=== PATIENT | female | born 2000 | race Hispanic/Latino ===

== ENCOUNTER 2020-10-14 12:18 | Day surgery (SDC) | payer OTHER ==
[2020-10-14] MEDS ORDERED: hydrALAZINE 20 MG/ML VIAL SLOW IVP PRN (12:35)
[2020-10-14 12:59] VITALS: BMI 20.9
[2020-10-14 13:11] LABS: Bilirubin Neg (Negative); Blood, Urine Negative (Negative); Clarity Clear (Clear); Glucose, Urine (Dipstick) Normal (Negative); Ketone, Urine Negative (Negative); Leukocyte Negative (Negative); Nitrite Negative (Negative); Protein, Urine (Dipstick) Negative (Neg-Trace); Urobilinogen Normal mg/dL (Less than 2)
[2020-10-14 13:12] LABS: Urine Culture Reflex No No
[2020-10-14 13:25] LABS: Bacteria/HPF Rare-Few HPF (None Seen); RBC/HPF 0-3 HPF (0-3); Squamous Epithelial 0-3 HPF (0-3); WBC/HPF 0-3 HPF (0-3)
== END 2020-10-14 14:11 | disposition home or self-care (01) ==
LOC: CSHLD/OP 12:18
PROVIDERS: ATTEND Obstetrics & Gynecology
DX: O99.891 Other specified diseases and conditions complicating pregnancy (principal); R10.30 Lower abdominal pain, unspecified; R30.0 Dysuria; Z3A.22 22 weeks gestation of pregnancy; Z87.440 Personal history of urinary (tract) infections; Z88.0 Allergy status to penicillin
CPT/HCPCS: 51701; 81001; 99282

== ENCOUNTER 2021-02-09 13:30 | Outpatient (CLI) | payer OTHER ==
[2021-02-10 13:56] LABS: SARS-CoV-2 PCR by NAA Not Detected (NotDetected)
== END 2021-02-09 13:31 | disposition home or self-care (01) ==
LOC: CSHLAB 13:30
PROVIDERS: ATTEND Obstetrics & Gynecology
DX: Z20.822 Contact with and (suspected) exposure to COVID-19 (principal)
CPT/HCPCS: U0003; U0005

== ENCOUNTER 2021-02-13 19:05 | Inpatient (IN) | payer OTHER ==
[~2021-02-13 19:05] MED LIST: Bupivacaine 0.25% HCL 30 ML VIAL ONE
[2021-02-13] MEDS ORDERED: Ondansetron PF 4 MG/2 ML Vial IVP PRN (20:37)
[2021-02-13] MEDS ORDERED: Misoprostol 200 MCG TAB PR PRN (20:37)
[2021-02-13] MEDS ORDERED: Butorphanol Tartrate 1 MG/ML VIAL SLOW IVP PRN (20:37)
[2021-02-13] MEDS ORDERED: Lidocaine 1% (PF) 30 ML VIAL SC PRN (20:37)
[2021-02-13] MEDS ORDERED: Methylergonovine 0.2 MG/ML VIAL IM PRN (20:37)
[2021-02-13] MEDS ORDERED: HYDROcodone/Acetaminophen 5/325 mg Tablet PO PRN ×2 (20:37)
[2021-02-13] MEDS ORDERED: Acetaminophen 500 MG TAB PO PRN (20:37)
[2021-02-13] MEDS ORDERED: Promethazine HCl 25 MG/ML VIAL IM PRN (20:37)
[2021-02-13] MEDS ORDERED: Ibuprofen 800 MG TAB PO PRN (20:37)
[2021-02-13] MEDS ORDERED: Carboprost 250 MCG/ML AMP IM PRN (20:37)
[2021-02-13] MEDS ORDERED: Docusate 100 MG CAP PO PRN (20:37)
[2021-02-13] MEDS ORDERED: Diphenoxylate HCl/Atropine Tablet PO PRN ×2 (20:37)
[2021-02-13] MEDS ORDERED: Zolpidem Tartrate 5 MG TAB PO PRN (20:37)
[2021-02-13] MEDS ORDERED: hydrALAZINE 20 MG/ML VIAL SLOW IVP PRN (20:37)
[2021-02-13] MEDS ORDERED: NS w/ Oxytocin 30 units 500 ML IV SCH ×2 (20:45)
[2021-02-13] MEDS ORDERED: NS w/ Oxytocin 30 units 500 ML IVPB SCH (20:45)
[2021-02-13] MEDS: Lactated Ringer's 1,000 ML IV SCH (20:50)
[2021-02-13] MEDS: Misoprostol 100 MCG TAB VAG SCH (21:50)
[2021-02-13 22:10] LABS: Hemoglobin 10.9 g/dL (12.0-15.5); Mean Corpuscular HGB CONC 33.5 g/dL (32.0-36.0); Mean Corpuscular Volume 89.5 fl (81.6-98.3); Mean Platelet Volume 11.9 fl (7.4-10.4); Platelet Count 214 10x3/uL (150-450); RBC Distribution Width 12.5 % (11.5-14.5); Red Blood Cell (RBC) Count 3.63 10x6/uL (3.90-5.03); White Blood Cell (WBC) Count 9.5 10x3/uL (3.5-10.5)
[2021-02-13 22:17] VITALS: BMI 25.7
[2021-02-13 22:36] LABS: Syphilis Antibody Nonreactive (Nonreactive); Syphilis Antibody Index 0.12 S/CO (<1.00 Non-Reactive)
[2021-02-13 22:37] LABS: Hep B Surf Ag Non-Reactive S/CO (NonReactive)
[2021-02-13 23:02] LABS: HBSAg Index 0.29 S/CO (0-0.99)
[2021-02-14] MEDS: Lactated Ringer's 1,000 ML IV SCH ×2 (00:01→13:22)
[2021-02-14] MEDS ORDERED: Fentanyl 2 mcg/Bup 0.1% Cadd 100 ML ONE (00:17)
[2021-02-14] MEDS: Misoprostol 100 MCG TAB VAG SCH ×4 (00:20→13:22)
[2021-02-14] MEDS ORDERED: Ondansetron PF 4 MG/2 ML Vial IVP PRN ×4 (02:28→14:21)
[2021-02-14] MEDS ORDERED: Lactated Ringer's 500 ML IV PRN (02:28)
[2021-02-14] MEDS ORDERED: Hydrocerin (Eucerin) Cream 120 gm Jar TOP PRN (02:28)
[2021-02-14] MEDS ORDERED: ePHEDrine Sulfate 50 MG/10 ML VIAL SLOW IVP PRN (02:28)
[2021-02-14] MEDS ORDERED: diphenhydrAMINE 50 MG/ML VIAL IVP PRN (02:28)
[2021-02-14] MEDS ORDERED: Naloxone HCl 0.4 mg/ml Vial IVP PRN ×2 (02:28)
[2021-02-14] MEDS ORDERED: Acetaminophen 325 MG TAB PO PRN ×2 (02:28→13:22)
[2021-02-14] MEDS ORDERED: Promethazine HCl 25 MG/ML VIAL IM PRN ×3 (02:28→14:21)
[2021-02-14] MEDS ORDERED: Communication Order-Pharmacy FS SCH (02:30)
[2021-02-14] MEDS ORDERED: Fentanyl 2 mcg/Bupivacaine 0.1% Cassette 100 ML EPIDURAL SCH (02:30)
[2021-02-14] MEDS ORDERED: Adacel (T-DAP) 0.5 ML SYRINGE IM SCH (13:15)
[2021-02-14] MEDS ORDERED: Benzocaine-Menthol 82.5 ML CAN TOP PRN ×2 (13:15→14:21)
[2021-02-14] MEDS ORDERED: NS / Oxytocin 40 units/1000ml 1,000 ML IV SCH (13:15)
[2021-02-14] MEDS ORDERED: hydrALAZINE 20 MG/ML VIAL SLOW IVP SCH (13:15)
[2021-02-14] MEDS ORDERED: Milk Of Magnesia 30 ML UDCUP PO PRN ×2 (13:15→14:21)
[2021-02-14] MEDS ORDERED: HYDROcodone/Acetaminophen 5/325 mg Tablet PO PRN ×6 (13:15→14:21)
[2021-02-14] MEDS ORDERED: Bisacodyl 10 MG SUPP PR PRN ×2 (13:15→14:21)
[2021-02-14] MEDS ORDERED: Lanolin Ointment 7 GM TUBE TOP PRN ×3 (13:15→14:21)
[2021-02-14] MEDS ORDERED: NS w/ Oxytocin 30 units 500 ML ONE (13:19)
[2021-02-14] MEDS ORDERED: Simethicone Chewable 80 MG TAB PO PRN (13:22)
[2021-02-14] MEDS ORDERED: diphenhydrAMINE 25 MG CAP PO PRN ×2 (13:22→14:21)
[2021-02-14] MEDS ORDERED: hydrALAZINE 20 MG/ML VIAL SLOW IVP PRN ×2 (13:22→14:21)
[2021-02-14] MEDS ORDERED: Ibuprofen 800 MG TAB PO SCH ×2 (14:00)
[2021-02-14] MEDS ORDERED: Preparation H Ointment 28 GM TUBE PR PRN (14:21)
[2021-02-14] MEDS ORDERED: NS w/ Oxytocin 30 units 500 ML IV SCH (14:21)
[2021-02-14] MEDS ORDERED: Methylergonovine 0.2 MG/ML VIAL IM PRN (14:21)
[2021-02-14] MEDS ORDERED: Zolpidem Tartrate 5 MG TAB PO PRN (14:21)
[2021-02-14] MEDS ORDERED: Misoprostol 200 MCG TAB VAG PRN (14:21)
[2021-02-14] MEDS ORDERED: Ferrous Sulfate 325 MG TAB PO SCH (17:00)
[2021-02-14] MEDS: Ferrous Sulfate 325 MG TAB PO SCH (19:25)
[2021-02-14] MEDS ORDERED: Docusate Calcium (SURFAK) 240 MG CAP PO SCH ×2 (21:00)
[2021-02-14] MEDS: Ibuprofen 800 MG TAB PO SCH (21:46)
[2021-02-14] MEDS: Docusate Calcium (SURFAK) 240 MG CAP PO SCH (21:46)
[2021-02-15] MEDS: Ibuprofen 800 MG TAB PO SCH ×3 (04:54→22:03)
[2021-02-15] MEDS: Ferrous Sulfate 325 MG TAB PO SCH (07:23)
[2021-02-15] MEDS: Prenatal Vitamin 1 TAB PO SCH (08:46)
[2021-02-15] MEDS: Docusate Calcium (SURFAK) 240 MG CAP PO SCH (08:46)
[2021-02-15] MEDS ORDERED: Prenatal Vitamin 1 TAB PO SCH ×2 (09:00)
[2021-02-15] MEDS ORDERED: Boostrix 0.5 ML (Tdap) VIAL IM ONE (13:22)
[2021-02-15] MEDS ORDERED: Varicella virus, LIVE 0.5 ML VIAL SC ONE (14:21)
[2021-02-15] MEDS ORDERED: Measles/Mumps/Rubella 10 MCG/0.5 ML VIAL SC ONE (14:21)
[2021-02-16] MEDS: Docusate Calcium (SURFAK) 240 MG CAP PO SCH ×3 (00:45→08:21)
[2021-02-16] MEDS: Ibuprofen 800 MG TAB PO SCH (05:32)
[2021-02-16] MEDS: Ferrous Sulfate 325 MG TAB PO SCH (07:20)
[2021-02-16 07:51] VITALS: BP 113/71; TEMP 98.2
[2021-02-16] MEDS: Prenatal Vitamin 1 TAB PO SCH (08:14)
== END 2021-02-16 12:29 | disposition home or self-care (01) | DRG 807 ==
LOC: CSHLD 19:05 → CSHPP 02-14 13:10
PROVIDERS: ADMIT Obstetrics & Gynecology; ATTEND Obstetrics & Gynecology
PROC: 10E0XZZ Delivery of Products of Conception, External Approach (ICD-10-PCS; principal; 2021-02-14)
PROC: 0UQMXZZ Repair Vulva, External Approach (ICD-10-PCS; 2021-02-14)
PROC: 3E0P7VZ Introduction of Hormone into Female Reproductive, Via Natural or Artificial Opening (ICD-10-PCS; 2021-02-14)
DX: O71.82 Other specified trauma to perineum and vulva (principal); Z37.0 Single live birth; Z3A.39 39 weeks gestation of pregnancy; Z20.822 Contact with and (suspected) exposure to COVID-19
CPT/HCPCS: 36415; 51702; 85027; 86780; 86850; 86900; 86901; 87340; J0595; J1200; J2405; J2590; J7120; S0020